=== PATIENT | male | born 1965 | race Caucasian/White ===

== ENCOUNTER 2023-04-18 21:31 | Emergency (ER) | payer BC, OTHER ==
[2023-04-18 21:46] VITALS: BP 110/88; PULSE 65; RESP 16; TEMP 97.8; BMI 25.7
[2023-04-18] MEDS ORDERED: DIPHTH,PERTUSS(ACELL),TET 0.5 ML DISP.SYRIN IM ONE ×2 (22:05→22:51)
== END 2023-04-18 23:00 | disposition home or self-care (01) ==
LOC: FER 21:31
PROC: 3E0234Z Introduction of Serum, Toxoid and Vaccine into Muscle, Percutaneous Approach (ICD-10-PCS; principal; 2023-04-18)
DX: S91.012A Laceration without foreign body, left ankle, initial encounter (principal); W60.XXXA Contact with nonvenomous plant thorns and spines and sharp leaves, initial encounter; Y93.9 Activity, unspecified; Y92.009 Unspecified place in unspecified non-institutional (private) residence as the place of occurrence of the external cause
CPT/HCPCS: 90715; 99282-25